=== PATIENT | female | born 1940 | race African-American/Black ===

== ENCOUNTER 2018-01-10 18:00 | Inpatient (IN) | payer MEDICARE, OTHER ==
[~2018-01-10] VITALS: Ht 172.7 cm; Wt 62.8 kg
[2018-01-10] MEDS ORDERED: SODIUM CHLORIDE 0.9% 1,000 ML IV ONE ×2 (19:24→23:15)
[2018-01-10 19:57] LABS: Basophils # (auto) 0 uL; Basophils % (auto) 0.6 % (0.0-2.0); Eosinophils # (auto) 0.1 uL; Hematocrit 35.1 % (36.0-46.0); Hemoglobin 11.4 g/dL (12.2-16.2); Lymphocytes # (auto) 1.8 uL; Lymphocytes % (auto) 28.9 % (10.0-50.0); Mean Corpuscular Hemoglobin 32.9 pg (28.0-32.0); Mean Corpuscular Hgb Conc. 32.5 g/dL (32.0-36.0); Mean Corpuscular Volume 101.4 fL (80.0-100.0); Monocytes # (auto) 0.5 uL; Monocytes % (auto) 7.9 % (0.0-12.0); Neutrophils # (auto) 3.8 uL; Neutrophils % (auto) 60.6 % (37.0-80.0); Nucleated Red Blood Cells % 0.2 %; Platelet Count (auto) 215 10^3/uL (140-450); Red Blood Cells 3.46 10^6/uL (4.0-5.20); Red Cell Distribution Width 16.8 % (11.8-14.3); White Blood Cell 6.3 10^3/uL (4.4-10.8)
[2018-01-10 20:06] LABS: INR 1.05 (0.9-1.15); Partial Thromboplastin Time 24.7 sec (22.64-33.71); Prothrombin Time 11.5 sec (9.37-12.3)
[2018-01-10 20:13] LABS: Urine Bacteria FEW /hpf (None Seen); Urine Blood Negative /uL (Negative); Urine Specific Gravity 1.014 (1.001-1.035); Urine WBC 56 /hpf (0 - 5)
[2018-01-10 20:17] LABS: Alanine Aminotransferase 14 U/L (13-56); Albumin 2.9 g/dL (3.4-5.0); Alkaline Phosphatase 130 U/L (45-117); Anion Gap 5 (5-15); Aspartate Aminotransferase 39 U/L (15-37); BUN/Creatinine Ratio 12.9; Bilirubin, Total 0.5 mg/dL (0.2-1.0); Blood Alcohol < 3.0 mg/dL (0-5); Blood Urea Nitrogen 15 mg/dL (7-18); Calcium 8.2 mg/dL (8.5-10.1); Carbon Dioxide 31 mmol/L (21-32); Chloride 103 mmol/L (98-107); GFR African American 58 mL/min; GFR Non-African American 48 mL/min; Glucose 93 mg/dL (74-106); Magnesium 2.4 mg/dL (1.6-2.6); Potassium 5.2 mmol/L (3.5-5.1); Sodium 139 mmol/L (136-145); Total Protein 7.5 g/dL (6.4-8.2)
[2018-01-10] MEDS ORDERED: IPRATROPIUM BROM 0.5 MG/2.5ML INH SOL NEB ONE (20:30)
[2018-01-10] MEDS ORDERED: ALBUTEROL SULF 2.5 MG/0.5ML(0.5%) NEB SOLN NEB ONE (20:30)
[2018-01-10 21:43] LABS: Alcohol, Urine < 3.0 mg/dL (0-5); Amphetamine Screen, Urine NEGATIVE (NEGATIVE); Barbiturate Scree,Urine NEGATIVE (NEGATIVE); Benzodiazephine Screen, Urine POSITIVE (NEGATIVE); Cannabinoid Screen, Urine NEGATIVE (NEGATIVE); Cocaine Screen, Urine NEGATIVE (NEGATIVE); Opiate Scree,Urine POSITIVE (NEGATIVE); Phencyclidine Screen, Urine NEGATIVE (NEGATIVE)
[2018-01-10] MEDS ORDERED: KETOROLAC TROMETH 30 MG/ML 1ML VIAL IV ONE ×2 (22:15)
[2018-01-10] MEDS ORDERED: NITROGLYCERIN 0.2MG/HR TOPICAL PATCH TD ONE (23:00)
[2018-01-10] MEDS ORDERED: ASPirin 325 MG TAB PO ONE (23:00)
[2018-01-10] MEDS ORDERED: cefTRIAXone 1GM/10ml IVPUSH 10 ML IV ONE (23:00)
[2018-01-10] MEDS ORDERED: DOCUSATE SOD 100 MG CAP PO PRN (23:45)
[2018-01-10] MEDS ORDERED: NITROGLYCERIN 0.4 MG SL TAB SL PRN (23:45)
[2018-01-10] MEDS ORDERED: MORPHINE SULFATE 4 MG/ML SYR/VIAL IV PRN (23:45)
[2018-01-10] MEDS ORDERED: ONDANSETRON HCL 4 MG/2 ML VIAL IV PRN (23:45)
[2018-01-10] MEDS ORDERED: ALBUTEROL SULF 2.5 MG/0.5ML(0.5%) NEB SOLN NEB PRN (23:45)
[2018-01-10] MEDS ORDERED: ACETAMINOPHEN 325 MG TAB PO PRN (23:45)
[2018-01-11] MEDS: TEMAZEPAM 15 MG CAP PO PRN ×2 (00:57→22:08)
[2018-01-11 01:42] VITALS: BP 134/66
[2018-01-11 03:39] LABS: Albumin 2.8 g/dL (3.4-5.0); BUN/Creatinine Ratio 15.5; Calcium 7.8 mg/dL (8.5-10.1); Potassium 4.2 mmol/L (3.5-5.1)
[2018-01-11 04:00] LABS: Bilirubin, Total 0.3 mg/dL (0.2-1.0); Total Protein 6.5 g/dL (6.4-8.2)
[2018-01-11 05:18] VITALS: BP 140/56
[2018-01-11 06:24] LABS: Basophils # (auto) 0 uL; Eosinophils # (auto) 0.1 uL; Hematocrit 31.1 % (36.0-46.0); Monocytes # (auto) 0.4 uL; Nucleated Red Blood Cells % 0.2 %; White Blood Cell 5.7 10^3/uL (4.4-10.8)
[2018-01-11 06:36] LABS: Basophils % (auto) 0.4 % (0.0-2.0); Eosinophils % (auto) 2.1 % (0.0-7.0); Hemoglobin 10.3 g/dL (12.2-16.2); Lymphocytes % (auto) 34.4 % (10.0-50.0); Mean Corpuscular Hemoglobin 33.9 pg (28.0-32.0); Mean Corpuscular Hgb Conc. 33.1 g/dL (32.0-36.0); Mean Corpuscular Volume 102.5 fL (80.0-100.0); Monocytes % (auto) 6.9 % (0.0-12.0); Neutrophils # (auto) 3.2 uL; Neutrophils % (auto) 56.2 % (37.0-80.0); Platelet Count (auto) 175 10^3/uL (140-450); Red Blood Cells 3.03 10^6/uL (4.0-5.20); Red Cell Distribution Width 16.8 % (11.8-14.3)
[2018-01-11] MEDS: HYDROcodone-ACET 5/325MG TAB PO PRN ×4 (08:16→22:07)
[2018-01-11 08:26] VITALS: BP 126/74
[2018-01-11] MEDS: ASPirin 81 mg TAB PO SCH (09:45)
[2018-01-11] MEDS: FAMOTIDINE 20 MG TAB PO SCH ×2 (09:45→22:07)
[2018-01-11] MEDS: ENOXAPARIN SOD 40 MG/0.4 ML SYRINGE SC SCH (09:46)
[2018-01-11 13:00] VITALS: BP 134/76
[2018-01-11 16:38] VITALS: BP 168/79
[2018-01-11] MEDS: NICOTINE 21MG/24 HR TOPICAL PATCH TD SCH (17:31)
[2018-01-11 22:00] VITALS: BP 148/75
[2018-01-11] MEDS: cefTRIAXone 1GM/10ml IVPUSH 10 ML IV SCH (22:07)
[2018-01-12] MEDS ORDERED: LORazepam 0.5 MG TAB PO ONE (00:45)
[2018-01-12] MEDS: HYDROcodone-ACET 5/325MG TAB PO PRN ×5 (04:20→21:40)
[2018-01-12 05:26] VITALS: BP 147/73
[2018-01-12 08:16] VITALS: BP 159/78
[2018-01-12] MEDS: ASPirin 81 mg TAB PO SCH (09:48)
[2018-01-12] MEDS: FAMOTIDINE 20 MG TAB PO SCH ×2 (09:48→21:40)
[2018-01-12] MEDS: ENOXAPARIN SOD 40 MG/0.4 ML SYRINGE SC SCH (09:48)
[2018-01-12] MEDS: NICOTINE 21MG/24 HR TOPICAL PATCH TD SCH (09:49)
[2018-01-12 11:52] VITALS: BP 148/79
[2018-01-12 16:25] VITALS: BP 149/72
[2018-01-12] MEDS: cefTRIAXone 1GM/10ml IVPUSH 10 ML IV SCH (21:39)
[2018-01-12] MEDS: TEMAZEPAM 15 MG CAP PO PRN (21:40)
[2018-01-12 22:00] VITALS: BP 149/84
[2018-01-13] MEDS: HYDROcodone-ACET 5/325MG TAB PO PRN ×3 (04:06→13:05)
[2018-01-13 04:49] VITALS: BP 152/75
[2018-01-13] MEDS: FAMOTIDINE 20 MG TAB PO SCH (08:29)
[2018-01-13] MEDS: ASPirin 81 mg TAB PO SCH (08:29)
[2018-01-13] MEDS: ENOXAPARIN SOD 40 MG/0.4 ML SYRINGE SC SCH (08:30)
[2018-01-13] MEDS: NICOTINE 21MG/24 HR TOPICAL PATCH TD SCH (08:30)
[2018-01-13 08:55] VITALS: BP 131/67
[2018-01-13] MEDS ORDERED: BENAZEPRIL HCL 10 MG TAB PO SCH (10:00)
[2018-01-13 11:16] VITALS: BP 131/67
[2018-01-13 13:00] VITALS: BP 166/83
== END 2018-01-13 17:55 | disposition home or self-care (01) | DRG 871 ==
LOC: EDUNIT# 18:00 → EDBD 18:00 → ER 18:01 → EAST 18:02 → TELE-EAST 01-11 02:07
PROVIDERS: ADMIT Nurse Practitioner; ATTEND Family Medicine
DX: A41.9 Sepsis, unspecified organism (principal); G92 Toxic encephalopathy; I48.91 Unspecified atrial fibrillation; E86.0 Dehydration; F03.90 Unspecified dementia, unspecified severity, without behavioral disturbance, psychotic disturbance, mood disturbance, and anxiety; D64.9 Anemia, unspecified; I11.9 Hypertensive heart disease without heart failure; J44.1 Chronic obstructive pulmonary disease with (acute) exacerbation; G47.00 Insomnia, unspecified; N39.0 Urinary tract infection, site not specified; T40.691A Poisoning by other narcotics, accidental (unintentional), initial encounter; B96.20 Unspecified Escherichia coli [E. coli] as the cause of diseases classified elsewhere; K59.00 Constipation, unspecified; R79.1 Abnormal coagulation profile; Z53.20 Procedure and treatment not carried out because of patient's decision for unspecified reasons; R74.8 Abnormal levels of other serum enzymes; Z88.0 Allergy status to penicillin; Z87.81 Personal history of (healed) traumatic fracture; Z72.0 Tobacco use; Y92.89 Other specified places as the place of occurrence of the external cause
CPT/HCPCS: 36415; 36600; 51702; 70450; 71045; 80053; 80307; 80320; 81001; 82140; 82805; 82962; 83605; 83735; 83880; 84484; 85025; 85379; 85610; 85730; 86141; 87040; 87086; 87088; 87186; 87804; 93005; 93306; 93886; 93970; 94640; 96361; 96374; 96375; J1885